=== PATIENT | female | born 2000 | race Caucasian/White ===

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

== ENCOUNTER 2022-03-26 00:16 | Inpatient (IN) | payer OTHER ==
[2022-03-26] MEDS ORDERED: Terbutaline 1 MG/ML SDV SUBCUT PRN (01:16)
[2022-03-26] MEDS ORDERED: Lidocaine 1% 50 ML MDV INJECT PRN (01:16)
[2022-03-26] MEDS ORDERED: Misoprostol 200 MCG Tab PO PRN (01:16)
[2022-03-26] MEDS ORDERED: Sodium Chloride 0.9% 10 ML Syringe FLUSH PRN (01:16)
[2022-03-26] MEDS ORDERED: Misoprostol 25 MCG (1/4 of 100 MCG) Tab VAG PRN ×2 (01:16)
[2022-03-26] MEDS ORDERED: Butorphanol 1 MG/ML SDV IVPUSH PRN (01:16)
[2022-03-26] MEDS ORDERED: Methylergonovine 0.2 MG/1 ML Amp IM PRN (01:16)
[2022-03-26] MEDS ORDERED: Sodium Chloride 0.9% 20 ML SDV IV PRN (01:16)
[2022-03-26] MEDS ORDERED: Water For Irrigation,Sterile 1,000 ML Container IRR PRN (01:16)
[2022-03-26] MEDS ORDERED: Carboprost Tromethamine 250 MCG/1 ML Amp IM PRN (01:16)
[2022-03-26] MEDS ORDERED: Tranexamic Acid 1,000 MG in Sodium Chloride 0.9% 100 ML IV PRN (01:16)
[2022-03-26] MEDS ORDERED: Sodium Chloride 0.9% 2.5 ML Syringe FLUSH PRN (01:16)
[2022-03-26] MEDS ORDERED: Oxytocin/0.9 % Sodium Chloride 30 UNIT/500 ML BAG IV SCH ×2 (01:30)
[2022-03-26] MEDS: Lactated Ringers 1,000 ML IV SCH ×2 (04:44→09:48)
[2022-03-26] MEDS ORDERED: ePHEDrine 50 MG/ML SDV IVPUSH PRN ×2 (06:00)
[2022-03-26] MEDS ORDERED: Phenylephrine HCl In 0.9% NaCl 1 MG/10 ML Vial IVPUSH PRN (06:00)
[2022-03-26] MEDS ORDERED: Ropivacaine HCl/PF 400 MG in Premix Bag 1 BAG EPIDUR SCH (06:00)
[2022-03-26] MEDS ORDERED: oxyCODONE 5 MG Tab PO PRN (12:54)
[2022-03-26] MEDS ORDERED: Acetaminophen 500 MG Tab PO PRN (12:54)
[2022-03-26] MEDS ORDERED: Witch Hazel Medicated Pads 40/Jar TOP PRN (12:54)
[2022-03-26] MEDS ORDERED: Ibuprofen 400 MG Tab PO PRN (12:54)
[2022-03-26] MEDS ORDERED: Benzocaine/Menthol 20%-0.5% Spray 78 GM Cannister TOP PRN (12:54)
[2022-03-26] MEDS ORDERED: Lanolin 100% Cream 7 GM Tube TOP PRN (12:54)
[2022-03-26] MEDS ORDERED: Bisacodyl 10 MG Supp RECTAL PRN (12:54)
[2022-03-26] MEDS: Acetaminophen 500 MG Tab PO PRN (20:28)
[2022-03-26] MEDS: Ibuprofen 800 MG Tab PO PRN (20:30)
[2022-03-26] MEDS: Docusate Sodium 100 MG Cap PO PRN (20:31)
[2022-03-27] MEDS: Acetaminophen 500 MG Tab PO PRN ×2 (04:14→17:19)
[2022-03-27] MEDS: Ibuprofen 800 MG Tab PO PRN (04:17)
[2022-03-27 06:25] LABS: CARBON DIOXIDE,CO2 22.1 mmol/L (21.0-32.0)
[2022-03-27] MEDS ORDERED: Sodium Ferric Gluconate Cmplex 125 MG in Sodium Chloride 0.9% 100 ML IV ONE (08:15)
[2022-03-27] MEDS: Labetalol 100 MG Tab PO SCH ×2 (10:00→20:59)
[2022-03-27] MEDS: Phenylephrine HCl In 0.9% NaCl 1 MG/10 ML Vial IVPUSH SCH (11:39)
[2022-03-27] MEDS: Docusate Sodium 100 MG Cap PO PRN (20:59)
[2022-03-28] MEDS: Ibuprofen 800 MG Tab PO PRN (04:39)
[2022-03-28] MEDS: Labetalol 100 MG Tab PO SCH (08:53)
[2022-03-28] MEDS: Docusate Sodium 100 MG Cap PO PRN (08:55)
== END 2022-03-28 13:40 | disposition home or self-care (01) | DRG 807 ==
LOC: MW.OBCHECK 00:16 → MW.OB 00:17 → MW.OBCHECK 01:16 → MW.OB 01:16 → OBSVTOIN 12:54 → MW.OB 18:00
PROVIDERS: ADMIT Obstetrics & Gynecology; ATTEND Obstetrics & Gynecology
PROC: 10E0XZZ Delivery of Products of Conception, External Approach (ICD-10-PCS; principal; 2022-03-26)
PROC: 10907ZC Drainage of Amniotic Fluid, Therapeutic from Products of Conception, Via Natural or Artificial Opening (ICD-10-PCS; 2022-03-26)
PROC: 3E0R3BZ Introduction of Anesthetic Agent into Spinal Canal, Percutaneous Approach (ICD-10-PCS; 2022-03-26)
PROC: 00HU33Z Insertion of Infusion Device into Spinal Canal, Percutaneous Approach (ICD-10-PCS; 2022-03-26)
DX: O14.04 Mild to moderate pre-eclampsia, complicating childbirth (principal); Z37.0 Single live birth; Z3A.37 37 weeks gestation of pregnancy; O99.02 Anemia complicating childbirth; D64.9 Anemia, unspecified; O69.1XX0 Labor and delivery complicated by cord around neck, with compression, not applicable or unspecified; Z20.822 Contact with and (suspected) exposure to COVID-19
CPT/HCPCS: 36415; 51702; 59025; 59409; 80053; 85014; 85018; 85027; 86592; 86850; 86900; 86901; A9270-GY; J2590; J2916; J3490; J7120; U0002